=== PATIENT | female | born 1985 | race Caucasian/White ===

== ENCOUNTER 2019-09-30 01:43 | Emergency (ER) | payer OTHER ==
[~2019-09-30] VITALS: Ht 162.6 cm; Wt 77.1 kg
[2019-09-30 01:57] VITALS: Ht 162.6 cm; Wt 77.1 kg
[2019-09-30 04:40] VITALS: BP 128/73
== END 2019-09-30 04:40 | disposition home or self-care (01) ==
LOC: ED 01:43
DX: R20.2 Paresthesia of skin (principal); R51 Headache; R20.0 Anesthesia of skin
CPT/HCPCS: 82962